=== PATIENT | male | born 1980 | race Caucasian/White ===

== ENCOUNTER 2017-12-27 05:52 | Emergency (ER) | payer OTHER ==
[~2017-12-27] VITALS: Ht 172.7 cm; Wt 72.6 kg
[2017-12-27] MEDS ORDERED: ORASEP SPRAY30 ML MM (07:47)
[2017-12-27] MEDS ORDERED: CEFUROXIME500 MG PO (07:47)
[2017-12-27] MEDS ORDERED: ZOFRAN ODT4 MG PO (07:49)
== END 2017-12-27 08:01 | disposition home or self-care (01) ==
LOC: ER 05:52
DX: J06.9 Acute upper respiratory infection, unspecified (principal)